=== PATIENT | male | born 1945 | race Caucasian/White ===

== ENCOUNTER 2016-12-17 18:00 | Inpatient (IN) | payer MEDICARE, OTHER ==
[~2016-12-17] VITALS: Ht 177.8 cm; Wt 74.1 kg
[2016-12-17] MEDS ORDERED: SODIUM CHLORIDE 0.9% 1,000ML IVBOLUS ONE (18:30)
[2016-12-17] MEDS ORDERED: SODIUM CHLORIDE FLUSH 10ML SYR IVF ONE (18:30)
[2016-12-17] MEDS ORDERED: LORazepam 2 MG/ML, 1ML IVPush ONE (19:00)
[2016-12-17] MEDS ORDERED: LORazepam 2 MG/ML, 1ML ONE (19:00)
[2016-12-17 19:07] LABS: BLOOD UREA NITROGEN 13 mg/dL (7-18)
[2016-12-17 19:10] LABS: ASPARTATE AMINO TRANSFERASE 22 U/L (15-37)
[2016-12-17] MEDS ORDERED: PROMETHAZINE 25 MG/ML, 1ML ONE (19:12)
[2016-12-17] MEDS ORDERED: PROMETHAZINE 25 MG/ML, 1ML IM ONE (19:30)
[2016-12-17] MEDS ORDERED: HALOPERIDOL 5 MG/ML ONE (21:15)
[2016-12-17] MEDS ORDERED: ONDANSETRON 2MG/ML, 2ML IVPush PRN (21:30)
[2016-12-17] MEDS ORDERED: PROMETHAZINE 25 MG/ML, 1ML IM PRN (21:30)
[2016-12-17] MEDS ORDERED: HALOPERIDOL 5 MG/ML IM ONE (21:30)
[2016-12-17 23:00] VITALS: BP 132/74
[2016-12-17] MEDS: NS + 20MEQ KCL 1,000 ML IV SCH (23:00)
[2016-12-17] MEDS: CEFTRIAXONE PMX 1GM/50ML 50 ML IV SCH (23:05)
[2016-12-17] MEDS: ENOXAPARIN 40 MG/0.4 ML SQ SCH (23:09)
[2016-12-17] MEDS: RISPERIDONE 1 MG TAB.RAPDIS PO SCH ×2 (23:09→23:14)
[2016-12-18 02:13] VITALS: BP 113/70
[2016-12-18] MEDS: ZIPRASIDONE 20 MG INJ IM PRN ×4 (05:52→22:55)
[2016-12-18 06:36] LABS: BLOOD UREA NITROGEN 9 mg/dL (7-18)
[2016-12-18 07:33] VITALS: BP 105/65
[2016-12-18] MEDS: CEFTRIAXONE PMX 1GM/50ML 50 ML IV SCH ×2 (09:05→21:45)
[2016-12-18 10:57] VITALS: BP 108/67
[2016-12-18 12:51] VITALS: BP 105/60
[2016-12-18] MEDS: NS + 20MEQ KCL 1,000 ML IV SCH (14:05)
[2016-12-18] MEDS: LORazepam 2 MG/ML, 1ML IVPush PRN (16:24)
[2016-12-18] MEDS: RISPERIDONE 0.5 MG TABLET PO SCH (21:00)
[2016-12-18] MEDS: MELATONIN 5 MG TABLET PO SCH (21:00)
[2016-12-18 21:02] VITALS: BP 101/63
[2016-12-18] MEDS: ENOXAPARIN 40 MG/0.4 ML SQ SCH (21:45)
[2016-12-19 01:22] VITALS: BP 117/75
[2016-12-19] MEDS: ZIPRASIDONE 20 MG INJ IM PRN ×2 (08:07→18:41)
[2016-12-19] MEDS: RISPERIDONE 0.5 MG TABLET PO SCH (10:12)
[2016-12-19] MEDS: CEFTRIAXONE PMX 1GM/50ML 50 ML IV SCH ×2 (10:12→22:32)
[2016-12-19 13:13] VITALS: BP 116/76
[2016-12-19 20:25] VITALS: BP 122/64
[2016-12-19] MEDS: RISPERIDONE 2 MG TABLET PO SCH (21:00)
[2016-12-19] MEDS: MELATONIN 5 MG TABLET PO SCH (21:00)
[2016-12-19] MEDS: ENOXAPARIN 40 MG/0.4 ML SQ SCH (22:32)
[2016-12-20 01:42] VITALS: BP 108/63
[2016-12-20 05:39] LABS: BLOOD UREA NITROGEN 11 mg/dL (7-18)
[2016-12-20 07:00] VITALS: BP 121/69
[2016-12-20] MEDS: RISPERIDONE 0.5 MG TABLET PO SCH (08:32)
[2016-12-20] MEDS: CEFTRIAXONE PMX 1GM/50ML 50 ML IV SCH ×2 (08:33→21:59)
[2016-12-20 13:21] VITALS: BP 119/66
[2016-12-20 19:26] VITALS: BP 131/80
[2016-12-20] MEDS: MELATONIN 5 MG TABLET PO SCH (21:00)
[2016-12-20] MEDS: RISPERIDONE 2 MG TABLET PO SCH (21:35)
[2016-12-20] MEDS: ENOXAPARIN 40 MG/0.4 ML SQ SCH (22:01)
[2016-12-20] MEDS ORDERED: ACETAMINOPHEN 325 MG TABLET PO PRN (23:30)
[2016-12-20] MEDS ORDERED: GUAIFENESIN/COD200MG-20MG/10ML LIQUID PO ONE (23:30)
[2016-12-21] MEDS: PIPERACILLIN/TAZO 3.375 GM in SODIUM CHLORIDE 0.9% 50 ML IV SCH ×4 (00:16→19:48)
[2016-12-21 00:29] VITALS: BP 113/72
[2016-12-21] MEDS ORDERED: FUROSEMIDE 40 MG/4 ML ONE (02:13)
[2016-12-21] MEDS ORDERED: FUROSEMIDE 40 MG/4 ML IV ONE (02:30)
[2016-12-21 02:36] LABS: ABG COLLECTION SITE LEFT RADIAL; COLLATERAL CIRCULATION TESTING NORMAL
[2016-12-21] MEDS: LINEZOLID PMX 600MG/300ML 300 ML IV SCH ×2 (03:26→14:33)
[2016-12-21] MEDS: LORazepam 2 MG/ML, 1ML IVPush PRN ×2 (04:36→22:30)
[2016-12-21] MEDS ORDERED: SODIUM CHLORIDE 0.9% 1,000 ML IVBOLUS ONE (04:59)
[2016-12-21] MEDS ORDERED: ACETAMINOPHEN 650 MG SUPP PR PRN ×2 (05:00)
[2016-12-21] MEDS ORDERED: LORazepam 2 MG/ML, 1ML IVPush ONE (05:00)
[2016-12-21] MEDS ORDERED: ASPIRIN 300 MG SUPP PR STA (05:32)
[2016-12-21 05:58] VITALS: BP 76/34
[2016-12-21] MEDS ORDERED: SODIUM CHLORIDE 0.9% 1,000ML IVBOLUS ONE (06:00)
[2016-12-21 07:03] LABS: BLOOD UREA NITROGEN 22 mg/dL (7-18)
[2016-12-21] MEDS: RISPERIDONE 0.5 MG TABLET PO SCH (08:00)
[2016-12-21 08:10] LABS: DIFF TOTAL CELLS COUNTED 100 CELL DIFF
[2016-12-21 08:14] LABS: VERIFY COUNTS? YES
[2016-12-21] MEDS ORDERED: SODIUM CHLORIDE 0.9% 1,000 ML IV SCH (11:00)
[2016-12-21] MEDS ORDERED: NOREPINEPHRINE 4 MG in SODIUM CHLORIDE 0.9% 246 ML IV PRN (14:00)
[2016-12-21] MEDS: SODIUM CHLORIDE 0.9% 1,000 ML IV SCH (20:07)
[2016-12-21] MEDS: MELATONIN 5 MG TABLET PO SCH (20:12)
[2016-12-21] MEDS: RISPERIDONE 2 MG TABLET PO SCH (20:12)
[2016-12-21] MEDS ORDERED: ENOXAPARIN 40 MG/0.4 ML SQ SCH (22:00)
[2016-12-22] MEDS: PIPERACILLIN/TAZO 3.375 GM in SODIUM CHLORIDE 0.9% 50 ML IV SCH ×4 (02:22→19:46)
[2016-12-22] MEDS: SODIUM CHLORIDE 0.9% 1,000 ML IV SCH (02:52)
[2016-12-22] MEDS: LINEZOLID PMX 600MG/300ML 300 ML IV SCH ×2 (02:52→12:45)
[2016-12-22] MEDS: LORazepam 2 MG/ML, 1ML IVPush PRN (04:30)
[2016-12-22 04:36] LABS: ASPARTATE AMINO TRANSFERASE 33 U/L (15-37); BLOOD UREA NITROGEN 20 mg/dL (7-18)
[2016-12-22 05:00] VITALS: BP 94/52
[2016-12-22] MEDS: RISPERIDONE 0.5 MG TABLET PO SCH (08:00)
[2016-12-22 14:25] VITALS: BP 114/69
[2016-12-22] MEDS ORDERED: ENOXAPARIN 40 MG/0.4 ML SQ SCH (21:00)
[2016-12-22] MEDS: MELATONIN 5 MG TABLET PO SCH (21:00)
[2016-12-22] MEDS: RISPERIDONE 2 MG TABLET PO SCH (21:59)
[2016-12-22 22:03] VITALS: BP 110/65
[2016-12-22] MEDS: ZIPRASIDONE 20 MG INJ IM PRN ×2 (22:03→22:08)
[2016-12-23] MEDS: LORazepam 2 MG/ML, 1ML IVPush PRN (01:23)
[2016-12-23] MEDS: PIPERACILLIN/TAZO 3.375 GM in SODIUM CHLORIDE 0.9% 50 ML IV SCH ×4 (02:04→18:40)
[2016-12-23] MEDS: LINEZOLID PMX 600MG/300ML 300 ML IV SCH ×2 (03:19→15:47)
[2016-12-23 05:38] LABS: BLOOD UREA NITROGEN 16 mg/dL (7-18)
[2016-12-23 05:45] VITALS: BP 114/67
[2016-12-23 06:23] VITALS: BP 118/70
[2016-12-23] MEDS: ZIPRASIDONE 20 MG INJ IM PRN ×2 (07:34→21:12)
[2016-12-23] MEDS: RISPERIDONE 0.5 MG TABLET PO SCH (08:00)
[2016-12-23 15:03] VITALS: BP 129/70
[2016-12-23 19:08] VITALS: BP 158/88
[2016-12-23] MEDS: MELATONIN 5 MG TABLET PO SCH (20:44)
[2016-12-23] MEDS: RISPERIDONE 2 MG TABLET PO SCH (20:45)
[2016-12-23] MEDS ORDERED: ENOXAPARIN 40 MG/0.4 ML SQ SCH (22:00)
[2016-12-24 01:13] VITALS: BP 128/78
[2016-12-24] MEDS: PIPERACILLIN/TAZO 3.375 GM in SODIUM CHLORIDE 0.9% 50 ML IV SCH ×3 (01:33→13:25)
[2016-12-24] MEDS: LINEZOLID PMX 600MG/300ML 300 ML IV SCH ×2 (03:14→14:49)
[2016-12-24 05:21] LABS: BLOOD UREA NITROGEN 9 mg/dL (7-18)
[2016-12-24 05:35] VITALS: BP 106/61
[2016-12-24] MEDS ORDERED: POTASSIUM CHLORIDE 20 MEQ TAB.ER.PRT PO ONE ×2 (06:30→12:00)
[2016-12-24 07:10] VITALS: BP 116/67
[2016-12-24] MEDS ORDERED: POTASSIUM CHLORIDE 20 MEQ PACKET PO ONE (08:30)
[2016-12-24] MEDS: RISPERIDONE 0.5 MG TABLET PO SCH (09:24)
[2016-12-24] MEDS ORDERED: AMOX1TAB64 PO (13:20)
[2016-12-24 13:49] VITALS: BP 124/62
[2016-12-24] MEDS ORDERED: PNEUMOCOCCAL 23 VACCINE IM-VACC ONE (15:30)
== END 2016-12-24 16:30 | DRG 871 ==
LOC: ED 20:57 → SUATTDRO 21:13 → EDIP 21:30 → 4NOR 22:07 → 4EST 12-18 10:49 → CCU 12-21 05:19 → ICU 12-21 18:37 → 4WST 12-22 14:10
PROVIDERS: ATTEND Family Medicine
DX: A41.9 Sepsis, unspecified organism (principal); J69.0 Pneumonitis due to inhalation of food and vomit; J96.00 Acute respiratory failure, unspecified whether with hypoxia or hypercapnia; G92 Toxic encephalopathy; N39.0 Urinary tract infection, site not specified; E44.0 Moderate protein-calorie malnutrition; F02.81 Dementia in other diseases classified elsewhere, unspecified severity, with behavioral disturbance; D64.9 Anemia, unspecified; E86.0 Dehydration; G47.00 Insomnia, unspecified; E87.6 Hypokalemia; G30.9 Alzheimer's disease, unspecified; R32 Unspecified urinary incontinence; J32.9 Chronic sinusitis, unspecified; Z66 Do not resuscitate; Z78.1 Physical restraint status; Z82.5 Family history of asthma and other chronic lower respiratory diseases; Z68.23 Body mass index [BMI] 23.0-23.9, adult
CPT/HCPCS: 36415; 36600; 70450; 71010; 76770; 80048; 80053; 81001; 82140; 82533; 82607; 82746; 82803; 82962; 83605; 83735; 84145; 84439; 84443; 85025; 87040; 87081; 87086; 87324; 90732; 93005; 96361; 96372; 96374; J0696; J1650; J1940; J2020; J2543; J2550; J3480; J3486; J1630; J2060; J7030

== ENCOUNTER 2017-03-25 04:07 | Emergency (ER) | payer MEDICARE ==
[~2017-03-25] VITALS: Ht 170.2 cm; Wt 75.5 kg
[~2017-03-25 04:07] MED LIST: AMOX1TAB64 PO
[2017-03-25 05:10] VITALS: BP 109/63
[2017-03-25] MEDS ORDERED: BACITRACIN ZINC OINT 500U/GM, 0.9 GM ONE (05:17)
== END 2017-03-25 05:35 | disposition home or self-care (01) ==
LOC: ED 05:00
DX: S01.01XA Laceration without foreign body of scalp, initial encounter (principal); G30.1 Alzheimer's disease with late onset; F02.81 Dementia in other diseases classified elsewhere, unspecified severity, with behavioral disturbance; S90.31XA Contusion of right foot, initial encounter; F17.200 Nicotine dependence, unspecified, uncomplicated; W01.0XXA Fall on same level from slipping, tripping and stumbling without subsequent striking against object, initial encounter; Y93.89 Activity, other specified; Y92.009 Unspecified place in unspecified non-institutional (private) residence as the place of occurrence of the external cause; Y99.9 Unspecified external cause status
CPT/HCPCS: 12002; 70450; 93005; 99284

== ENCOUNTER 2017-03-30 06:48 | Observation (INO) | payer MEDICARE ==
[~2017-03-30] VITALS: Ht 182.9 cm; Wt 75.2 kg
[2017-03-30 08:50] LABS: HEMATOCRIT 39.4 % (39.2-51.8); HEMOGLOBIN 12.9 g/dL (13.7-18.0)
[2017-03-30 09:01] LABS: BLOOD UREA NITROGEN 16 mg/dL (7-18)
[2017-03-30] MEDS ORDERED: CEFTRIAXONE PMX 1GM/50ML 50 ML IVPB ONE (09:30)
[2017-03-30] MEDS ORDERED: SODIUM CHLORIDE 0.9% 1,000ML IVBOLUS ONE (09:30)
[2017-03-30] MEDS ORDERED: ACETAMINOPHEN 325 MG TABLET PO PRN (10:00)
[2017-03-30] MEDS ORDERED: ONDANSETRON 2MG/ML, 2ML IVPush PRN (10:00)
[2017-03-30] MEDS ORDERED: ONDANSETRON ODT 4 MG PO PRN (10:00)
[2017-03-30] MEDS ORDERED: ENALAPRILAT 1.25 MG/ML, 2ML IVPush PRN (10:00)
[2017-03-30] MEDS ORDERED: HALOPERIDOL 1 MG TABLET PO PRN (10:00)
[2017-03-30] MEDS ORDERED: NYST15OI TP (10:21)
[2017-03-30] MEDS ORDERED: TAMS-11 PO (10:21)
[2017-03-30] MEDS ORDERED: DIVA125T3 PO (10:21)
[2017-03-30] MEDS ORDERED: CERA355L TP (10:21)
[2017-03-30] MEDS ORDERED: QUET25TA PO (10:21)
[2017-03-30] MEDS ORDERED: POTA10TA31 PO (10:21)
[2017-03-30] MEDS ORDERED: FURO-93 PO (10:21)
[2017-03-30] MEDS ORDERED: QUET50TA PO (10:21)
[2017-03-30] MEDS ORDERED: MULT-486 PO (10:25)
[2017-03-30] MEDS ORDERED: CYAN500T2 PO (10:25)
[2017-03-30] MEDS ORDERED: CHOL2000 PO (10:25)
[2017-03-30] MEDS ORDERED: LORA-445 PO (10:25)
[2017-03-30] MEDS ORDERED: THIA100T27 PO (10:25)
[2017-03-30 10:45] VITALS: BP 114/69
[2017-03-30] MEDS ORDERED: ENOXAPARIN 40 MG/0.4 ML SQ SCH (11:00)
[2017-03-30] MEDS: SODIUM CHLORIDE 0.9% 1,000 ML IV SCH (11:00)
[2017-03-30] MEDS ORDERED: HALOPERIDOL 5 MG/ML IM ONE (11:30)
[2017-03-30] MEDS: CHOLECALCIFEROL 1,000 UNIT TABLET PO SCH (13:00)
[2017-03-30] MEDS: FUROSEMIDE 20 MG TABLET PO SCH (13:00)
[2017-03-30] MEDS: THIAMINE 100MG TABLET PO SCH (13:00)
[2017-03-30] MEDS: CYANOCOBALAMIN 1,000 MCG TABLET PO SCH (13:00)
[2017-03-30] MEDS: POTASSIUM CHLORIDE 10 MEQ TABLET.ER PO SCH (13:00)
[2017-03-30] MEDS: MULTIVITAMINS/MINERALS TABLET PO SCH (13:00)
[2017-03-30] MEDS: DIVALPROEX 125 MG TABLET.DR PO SCH ×3 (13:39→21:00)
[2017-03-30] MEDS: QUETIAPINE 25MG TABLET PO SCH ×2 (13:39→21:00)
[2017-03-30] MEDS: ZIPRASIDONE 20 MG INJ IM PRN (19:33)
[2017-03-30 20:20] VITALS: BP 113/63
[2017-03-30] MEDS: NYSTATIN OINT 15GM TP SCH (21:00)
[2017-03-30] MEDS ORDERED: TAMSULOSIN 0.4 MG CAP.ER.24H PO SCH (21:00)
[2017-03-31] MEDS: SODIUM CHLORIDE 0.9% 1,000 ML IV SCH (00:20)
[2017-03-31] MEDS: ZIPRASIDONE 20 MG INJ IM PRN ×2 (00:30→05:31)
[2017-03-31 01:25] VITALS: BP 112/64
[2017-03-31 05:03] LABS: HEMATOCRIT 41.2 % (39.2-51.8); HEMOGLOBIN 13.6 g/dL (13.7-18.0)
[2017-03-31 05:07] LABS: BLOOD UREA NITROGEN 16 mg/dL (7-18)
[2017-03-31] MEDS: DIVALPROEX 125 MG TABLET.DR PO SCH (05:31)
[2017-03-31 07:54] VITALS: BP 123/76
[2017-03-31] MEDS: MULTIVITAMINS/MINERALS TABLET PO SCH (09:00)
[2017-03-31] MEDS: NYSTATIN OINT 15GM TP SCH (09:00)
[2017-03-31] MEDS: POTASSIUM CHLORIDE 10 MEQ TABLET.ER PO SCH (09:00)
[2017-03-31] MEDS: THIAMINE 100MG TABLET PO SCH (09:00)
[2017-03-31] MEDS: CHOLECALCIFEROL 1,000 UNIT TABLET PO SCH (09:00)
[2017-03-31] MEDS: FUROSEMIDE 20 MG TABLET PO SCH (09:00)
[2017-03-31] MEDS: CYANOCOBALAMIN 1,000 MCG TABLET PO SCH (09:00)
[2017-03-31] MEDS ORDERED: AMOX1TAB64 PO (11:00)
[2017-03-31] MEDS ORDERED: CEFD300C37 PO ×2 (11:00→11:06)
== END 2017-03-31 11:40 | disposition home or self-care (01) ==
LOC: ED 07:17 → EDIP 08:22 → INTOOBSV 08:22 → 4WST 10:25
PROVIDERS: ATTEND Internal Medicine
DX: S01.01XA Laceration without foreign body of scalp, initial encounter (principal); G93.40 Encephalopathy, unspecified; F02.81 Dementia in other diseases classified elsewhere, unspecified severity, with behavioral disturbance; G30.9 Alzheimer's disease, unspecified; E44.0 Moderate protein-calorie malnutrition; D64.9 Anemia, unspecified; Z82.5 Family history of asthma and other chronic lower respiratory diseases; Z87.01 Personal history of pneumonia (recurrent)
CPT/HCPCS: 12001; 36415; 70450; 71010; 80048; 80164; 81003; 82040; 83036; 83605; 83735; 84100; 84439; 84443; 85025; 87040; 93005; 93308; 93321; 93325; 93880; 96360; 96361; 96372; 99285; G0378; J1630; J3486; J7030

== ENCOUNTER 2017-04-11 17:47 | Inpatient (IN) | payer MEDICARE ==
[~2017-04-11] VITALS: Ht 185.4 cm; Wt 65.6 kg
[~2017-04-11 17:47] MED LIST changes: +CEFD300C37 PO; +CERA355L TP; +CHOL2000 PO; +CYAN500T2 PO; +DIVA125T3 PO; +FURO-93 PO; +LORA-445 PO; +MULT-486 PO; +NYST15OI TP; +POTA10TA31 PO; +QUET25TA PO; +QUET50TA PO; +TAMS-11 PO; +THIA100T27 PO
[2017-04-11] MEDS ORDERED: SODIUM CHLORIDE 0.9% 1,000ML IVBOLUS ONE (18:30)
[2017-04-11] MEDS ORDERED: SODIUM CHLORIDE FLUSH 10ML SYR IVF ONE (18:30)
[2017-04-11 18:56] LABS: HEMATOCRIT 40.1 % (39.2-51.8); HEMOGLOBIN 13.4 g/dL (13.7-18.0)
[2017-04-11 19:10] LABS: BLOOD UREA NITROGEN 16 mg/dL (7-18)
[2017-04-11] MEDS ORDERED: HALOPERIDOL 5 MG/ML ONE (19:15)
[2017-04-11 19:17] LABS: ASPARTATE AMINO TRANSFERASE 17 U/L (15-37)
[2017-04-11 19:19] LABS: IS PT STATUS REG ER OR PRE ER? YES
[2017-04-11] MEDS ORDERED: HALOPERIDOL 5 MG/ML IM ONE (19:30)
[2017-04-11] MEDS ORDERED: ACETAMINOPHEN 325 MG TABLET PO ONE (20:30)
[2017-04-11] MEDS ORDERED: METRONIDAZOLE PMX 500MG/100ML 100 ML IV ONE (20:30)
[2017-04-11] MEDS ORDERED: ACETAMINOPHEN 325 MG TABLET ONE (20:33)
[2017-04-11] MEDS ORDERED: NS + 20MEQ KCL 1,000 ML IV SCH (20:34)
[2017-04-11] MEDS ORDERED: METRONIDAZOLE PMX 500MG/100ML 100 ML ONE (20:34)
[2017-04-11] MEDS ORDERED: QUETIAPINE 25MG TABLET PO SCH (21:00)
[2017-04-11] MEDS ORDERED: LORazepam 0.5MG TABLET PO PRN (21:00)
[2017-04-11] MEDS ORDERED: POLYETHYLENE GLYCOL 17 GM PACKET PO PRN (21:00)
[2017-04-11] MEDS ORDERED: HYDROcodone/APAP 5/325 TABLET PO PRN (21:00)
[2017-04-11] MEDS: NYSTATIN OINT 15GM TP SCH (21:00)
[2017-04-11] MEDS ORDERED: morphine SULFATE 10 MG/ML, 1ML IVPush PRN (21:00)
[2017-04-11] MEDS ORDERED: ONDANSETRON 2MG/ML, 2ML IVPush PRN (21:00)
[2017-04-11] MEDS ORDERED: DOCUSATE 100 MG CAPSULE PO PRN (21:00)
[2017-04-11] MEDS ORDERED: QUETIAPINE 25MG TABLET PO PRN (21:00)
[2017-04-11 22:33] VITALS: BP 112/50
[2017-04-12] MEDS: DIVALPROEX 125 MG TABLET.DR PO SCH ×5 (00:38→20:15)
[2017-04-12] MEDS: TAMSULOSIN 0.4 MG CAP.ER.24H PO SCH ×2 (00:38→20:15)
[2017-04-12] MEDS: VANCOMYCIN 50 MG/ML ORAL SUSP PO SCH ×4 (00:38→17:24)
[2017-04-12] MEDS: ENOXAPARIN 40 MG/0.4 ML SQ SCH ×3 (00:39→20:20)
[2017-04-12 02:10] VITALS: BP 101/61
[2017-04-12 05:28] LABS: BLOOD UREA NITROGEN 13 mg/dL (7-18)
[2017-04-12 05:30] LABS: HEMATOCRIT 38.2 % (39.2-51.8); WHITE BLOOD COUNT 21.3 x10^3/uL (3.4-10)
[2017-04-12 05:51] LABS: DIFF TOTAL CELLS COUNTED 100 CELL DIFF
[2017-04-12 05:53] LABS: LARGE PLATELETS 1+; VERIFY COUNTS? YES
[2017-04-12 08:10] VITALS: BP 98/65
[2017-04-12] MEDS ORDERED: HALOPERIDOL 5 MG/ML IM PRN ×2 (08:30→15:00)
[2017-04-12] MEDS: NYSTATIN OINT 15GM TP SCH ×2 (09:00→21:00)
[2017-04-12] MEDS: THIAMINE 100MG TABLET PO SCH (09:50)
[2017-04-12] MEDS: POTASSIUM CHLORIDE 10 MEQ TABLET.ER PO SCH (09:50)
[2017-04-12] MEDS: MULTIVITAMIN 1 TABLET PO SCH (09:50)
[2017-04-12] MEDS: CYANOCOBALAMIN 1,000 MCG TABLET PO SCH (09:50)
[2017-04-12] MEDS: FUROSEMIDE 20 MG TABLET PO SCH (09:50)
[2017-04-12] MEDS: QUETIAPINE 25MG TABLET PO SCH ×2 (12:26→20:15)
[2017-04-12] MEDS ORDERED: POTASSIUM CHLORIDE 20 MEQ TAB.ER.PRT PO ONE (13:30)
[2017-04-12] MEDS ORDERED: LORazepam 2 MG/ML, 1ML ONE (14:07)
[2017-04-12] MEDS ORDERED: HALOPERIDOL 2 MG/ML ORAL SOL PO PRN (15:00)
[2017-04-12 19:37] VITALS: BP 159/69
[2017-04-13 01:17] VITALS: BP 114/81
[2017-04-13] MEDS: VANCOMYCIN 50 MG/ML ORAL SUSP PO SCH ×4 (01:20→17:51)
[2017-04-13] MEDS: HALOPERIDOL 2 MG/ML ORAL SOL PO PRN ×3 (04:10→21:51)
[2017-04-13 05:44] LABS: BLOOD UREA NITROGEN 17 mg/dL (7-18)
[2017-04-13 05:47] LABS: HEMATOCRIT 36.1 % (39.2-51.8); HEMOGLOBIN 12.2 g/dL (13.7-18.0); WHITE BLOOD COUNT 13.5 x10^3/uL (3.4-10)
[2017-04-13] MEDS: DIVALPROEX 125 MG TABLET.DR PO SCH ×5 (06:10→21:50)
[2017-04-13 07:28] VITALS: BP 92/53
[2017-04-13] MEDS: POTASSIUM CHLORIDE 10 MEQ TABLET.ER PO SCH (08:00)
[2017-04-13] MEDS: THIAMINE 100MG TABLET PO SCH (08:01)
[2017-04-13] MEDS: CYANOCOBALAMIN 1,000 MCG TABLET PO SCH (08:01)
[2017-04-13] MEDS: NYSTATIN OINT 15GM TP SCH ×2 (08:01→21:54)
[2017-04-13] MEDS: FUROSEMIDE 20 MG TABLET PO SCH (08:01)
[2017-04-13] MEDS: MULTIVITAMIN 1 TABLET PO SCH (08:01)
[2017-04-13] MEDS: POTASSIUM CHLORIDE 20 MEQ TAB.ER.PRT PO ONE ×2 (08:18→09:06)
[2017-04-13] MEDS: QUETIAPINE 25MG TABLET PO SCH ×3 (12:12→21:50)
[2017-04-13] MEDS: HALOPERIDOL 5 MG/ML IM PRN (15:47)
[2017-04-13 19:18] VITALS: BP 101/64
[2017-04-13] MEDS: TAMSULOSIN 0.4 MG CAP.ER.24H PO SCH (21:50)
[2017-04-13] MEDS: ENOXAPARIN 40 MG/0.4 ML SQ SCH (21:54)
[2017-04-14] MEDS: VANCOMYCIN 50 MG/ML ORAL SUSP PO SCH ×4 (00:26→17:33)
[2017-04-14 02:13] VITALS: BP 97/59
[2017-04-14 05:08] LABS: BLOOD UREA NITROGEN 14 mg/dL (7-18)
[2017-04-14 05:10] LABS: HEMATOCRIT 36.2 % (39.2-51.8); HEMOGLOBIN 12.1 g/dL (13.7-18.0); WHITE BLOOD COUNT 8.4 x10^3/uL (3.4-10)
[2017-04-14] MEDS: DIVALPROEX 125 MG TABLET.DR PO SCH ×4 (06:09→22:01)
[2017-04-14 09:37] VITALS: BP 101/56
[2017-04-14] MEDS: MULTIVITAMIN 1 TABLET PO SCH (09:41)
[2017-04-14] MEDS: POTASSIUM CHLORIDE 10 MEQ TABLET.ER PO SCH (09:41)
[2017-04-14] MEDS: FUROSEMIDE 20 MG TABLET PO SCH (09:41)
[2017-04-14] MEDS: CYANOCOBALAMIN 1,000 MCG TABLET PO SCH (09:41)
[2017-04-14] MEDS: THIAMINE 100MG TABLET PO SCH (09:41)
[2017-04-14] MEDS: NYSTATIN OINT 15GM TP SCH ×2 (09:42→22:01)
[2017-04-14] MEDS: QUETIAPINE 25MG TABLET PO SCH ×2 (11:46→22:00)
[2017-04-14 13:53] VITALS: BP 113/63
[2017-04-14] MEDS: ACETAMINOPHEN 325 MG TABLET PO PRN (17:33)
[2017-04-14 18:36] VITALS: BP 108/61
[2017-04-14] MEDS: POTASSIUM CHLORIDE 20 MEQ TAB.ER.PRT PO SCH (22:00)
[2017-04-14] MEDS: TAMSULOSIN 0.4 MG CAP.ER.24H PO SCH (22:01)
[2017-04-14] MEDS: ENOXAPARIN 40 MG/0.4 ML SQ SCH (22:01)
[2017-04-15] MEDS: VANCOMYCIN 50 MG/ML ORAL SUSP PO SCH ×4 (00:58→17:17)
[2017-04-15 01:30] VITALS: BP 119/66
[2017-04-15 05:33] LABS: BLOOD UREA NITROGEN 12 mg/dL (7-18)
[2017-04-15] MEDS: DIVALPROEX 125 MG TABLET.DR PO SCH ×4 (05:58→21:10)
[2017-04-15 06:03] LABS: HEMATOCRIT 38.2 % (39.2-51.8); HEMOGLOBIN 13.1 g/dL (13.7-18.0); WHITE BLOOD COUNT 17.9 x10^3/uL (3.4-10)
[2017-04-15 07:39] VITALS: BP 107/52
[2017-04-15] MEDS: MULTIVITAMIN 1 TABLET PO SCH (09:12)
[2017-04-15] MEDS: THIAMINE 100MG TABLET PO SCH (09:12)
[2017-04-15] MEDS: POTASSIUM CHLORIDE 20 MEQ TAB.ER.PRT PO SCH ×2 (09:12→21:10)
[2017-04-15] MEDS: FUROSEMIDE 20 MG TABLET PO SCH (09:12)
[2017-04-15] MEDS: CYANOCOBALAMIN 1,000 MCG TABLET PO SCH (09:12)
[2017-04-15] MEDS: NYSTATIN OINT 15GM TP SCH ×2 (09:16→21:11)
[2017-04-15] MEDS: QUETIAPINE 25MG TABLET PO SCH ×2 (11:16→21:10)
[2017-04-15 14:00] VITALS: BP 112/58
[2017-04-15] MEDS: ACETAMINOPHEN 325 MG TABLET PO PRN (14:54)
[2017-04-15] MEDS ORDERED: SODIUM CHLORIDE 0.9%, 500ML IVBOLUS ONE (19:30)
[2017-04-15 20:00] VITALS: BP 122/69
[2017-04-15] MEDS: ENOXAPARIN 40 MG/0.4 ML SQ SCH (21:10)
[2017-04-15] MEDS: TAMSULOSIN 0.4 MG CAP.ER.24H PO SCH (21:11)
[2017-04-15] MEDS: METRONIDAZOLE PMX 500MG/100ML 100 ML IV SCH (22:11)
[2017-04-16 00:48] VITALS: BP 127/72
[2017-04-16] MEDS: DIVALPROEX 125 MG TABLET.DR PO SCH ×4 (05:49→20:13)
[2017-04-16] MEDS: VANCOMYCIN 50 MG/ML ORAL SUSP PO SCH ×5 (05:49→23:47)
[2017-04-16] MEDS: METRONIDAZOLE PMX 500MG/100ML 100 ML IV SCH ×3 (05:49→21:49)
[2017-04-16 06:04] LABS: BLOOD UREA NITROGEN 14 mg/dL (7-18)
[2017-04-16 06:12] LABS: HEMATOCRIT 37.4 % (39.2-51.8); HEMOGLOBIN 12.5 g/dL (13.7-18.0); WHITE BLOOD COUNT 17.6 x10^3/uL (3.4-10)
[2017-04-16 08:06] VITALS: BP 101/61
[2017-04-16] MEDS: NYSTATIN OINT 15GM TP SCH ×2 (09:00→20:25)
[2017-04-16] MEDS ORDERED: MAGNESIUM SULFATE PMX 2GM/50ML 50 ML IV ONE (10:00)
[2017-04-16] MEDS: THIAMINE 100MG TABLET PO SCH (10:03)
[2017-04-16] MEDS: POTASSIUM CHLORIDE 20 MEQ TAB.ER.PRT PO SCH ×2 (10:03→20:14)
[2017-04-16] MEDS: CYANOCOBALAMIN 1,000 MCG TABLET PO SCH (10:03)
[2017-04-16] MEDS: MULTIVITAMIN 1 TABLET PO SCH (10:03)
[2017-04-16] MEDS: QUETIAPINE 25MG TABLET PO SCH ×2 (11:57→20:14)
[2017-04-16 14:50] VITALS: BP 91/59
[2017-04-16] MEDS: CEFTRIAXONE PMX 1GM/50ML 50 ML IV SCH (17:28)
[2017-04-16 19:14] VITALS: BP 116/60
[2017-04-16] MEDS: TAMSULOSIN 0.4 MG CAP.ER.24H PO SCH (20:13)
[2017-04-16] MEDS: ENOXAPARIN 40 MG/0.4 ML SQ SCH (20:14)
[2017-04-17 00:59] VITALS: BP 113/74
[2017-04-17 05:23] LABS: HEMATOCRIT 38.5 % (39.2-51.8); HEMOGLOBIN 12.8 g/dL (13.7-18.0); WHITE BLOOD COUNT 10.2 x10^3/uL (3.4-10)
[2017-04-17 05:30] LABS: BLOOD UREA NITROGEN 9 mg/dL (7-18)
[2017-04-17] MEDS: DIVALPROEX 125 MG TABLET.DR PO SCH ×4 (05:50→20:47)
[2017-04-17] MEDS: VANCOMYCIN 50 MG/ML ORAL SUSP PO SCH ×3 (05:50→17:53)
[2017-04-17] MEDS: METRONIDAZOLE PMX 500MG/100ML 100 ML IV SCH ×3 (05:59→21:54)
[2017-04-17 07:33] VITALS: BP 116/78
[2017-04-17] MEDS: THIAMINE 100MG TABLET PO SCH (08:16)
[2017-04-17] MEDS: CYANOCOBALAMIN 1,000 MCG TABLET PO SCH (08:16)
[2017-04-17] MEDS: MULTIVITAMIN 1 TABLET PO SCH (08:16)
[2017-04-17] MEDS: NYSTATIN OINT 15GM TP SCH ×2 (08:17→20:48)
[2017-04-17] MEDS: POTASSIUM CHLORIDE 20 MEQ TAB.ER.PRT PO SCH (08:17)
[2017-04-17] MEDS: QUETIAPINE 25MG TABLET PO SCH ×2 (11:52→20:47)
[2017-04-17 13:47] VITALS: BP 120/75
[2017-04-17] MEDS: CEFTRIAXONE PMX 1GM/50ML 50 ML IV SCH (17:53)
[2017-04-17] MEDS: HALOPERIDOL 5 MG/ML IM PRN (19:33)
[2017-04-17] MEDS: TAMSULOSIN 0.4 MG CAP.ER.24H PO SCH (20:47)
[2017-04-17] MEDS: ENOXAPARIN 40 MG/0.4 ML SQ SCH (20:47)
[2017-04-17 20:56] VITALS: BP 108/63
[2017-04-18 04:08] VITALS: BP 110/57
[2017-04-18] MEDS: DIVALPROEX 125 MG TABLET.DR PO SCH ×5 (05:25→21:00)
[2017-04-18] MEDS: METRONIDAZOLE PMX 500MG/100ML 100 ML IV SCH ×3 (05:25→22:57)
[2017-04-18] MEDS: VANCOMYCIN 50 MG/ML ORAL SUSP PO SCH ×4 (05:25→17:59)
[2017-04-18 08:42] VITALS: BP 116/64
[2017-04-18] MEDS: THIAMINE 100MG TABLET PO SCH (09:42)
[2017-04-18] MEDS: MULTIVITAMIN 1 TABLET PO SCH (09:42)
[2017-04-18] MEDS: CYANOCOBALAMIN 1,000 MCG TABLET PO SCH (09:42)
[2017-04-18] MEDS: NYSTATIN OINT 15GM TP SCH (09:43)
[2017-04-18] MEDS: QUETIAPINE 25MG TABLET PO SCH ×3 (11:50→21:00)
[2017-04-18] MEDS: MEROPENEM 500 MG in SODIUM CHLORIDE 0.9% 100 ML IV SCH ×2 (11:50→19:56)
[2017-04-18 14:18] VITALS: BP 125/56
[2017-04-18 19:39] VITALS: BP 123/69
[2017-04-18] MEDS: TAMSULOSIN 0.4 MG CAP.ER.24H PO SCH ×2 (19:56→21:00)
[2017-04-18] MEDS: ENOXAPARIN 40 MG/0.4 ML SQ SCH ×2 (19:57→21:00)
[2017-04-19 02:25] VITALS: BP 105/60
[2017-04-19] MEDS: MEROPENEM 500 MG in SODIUM CHLORIDE 0.9% 100 ML IV SCH ×3 (03:49→19:23)
[2017-04-19] MEDS: NYSTATIN OINT 15GM TP SCH ×2 (03:49→11:00)
[2017-04-19 05:04] LABS: HEMATOCRIT 38.6 % (39.2-51.8); HEMOGLOBIN 12.8 g/dL (13.7-18.0)
[2017-04-19 05:17] LABS: BLOOD UREA NITROGEN 11 mg/dL (7-18)
[2017-04-19] MEDS: DIVALPROEX 125 MG TABLET.DR PO SCH ×4 (06:00→19:23)
[2017-04-19] MEDS: VANCOMYCIN 50 MG/ML ORAL SUSP PO SCH ×4 (06:00→19:23)
[2017-04-19] MEDS: METRONIDAZOLE PMX 500MG/100ML 100 ML IV SCH ×2 (06:19→14:53)
[2017-04-19 08:02] VITALS: BP 100/62
[2017-04-19] MEDS: THIAMINE 100MG TABLET PO SCH (11:00)
[2017-04-19] MEDS: MULTIVITAMIN 1 TABLET PO SCH (11:00)
[2017-04-19] MEDS: CYANOCOBALAMIN 1,000 MCG TABLET PO SCH (11:00)
[2017-04-19] MEDS ORDERED: ERTA1VIA IV (11:20)
[2017-04-19] MEDS ORDERED: VANC1VIA3 PO (11:20)
[2017-04-19] MEDS ORDERED: DOCU-131 PO (11:20)
[2017-04-19] MEDS ORDERED: HYDR-3240 PO (11:20)
[2017-04-19] MEDS: QUETIAPINE 25MG TABLET PO SCH ×2 (11:30→19:23)
[2017-04-19] MEDS ORDERED: OMNIPAQUE 350 MG/ML, 100ML BOTTLE ONE (12:46)
[2017-04-19 13:30] VITALS: BP 108/50
[2017-04-19] MEDS: TAMSULOSIN 0.4 MG CAP.ER.24H PO SCH (19:23)
[2017-04-19] MEDS: ENOXAPARIN 40 MG/0.4 ML SQ SCH (19:35)
[2017-04-19 19:42] VITALS: BP 111/68
[2017-04-20] MEDS: METRONIDAZOLE PMX 500MG/100ML 100 ML IV SCH ×4 (00:58→22:26)
[2017-04-20] MEDS: VANCOMYCIN 50 MG/ML ORAL SUSP PO SCH ×4 (01:28→19:30)
[2017-04-20] MEDS: NYSTATIN OINT 15GM TP SCH ×3 (04:00→22:25)
[2017-04-20] MEDS: MEROPENEM 500 MG in SODIUM CHLORIDE 0.9% 100 ML IV SCH ×2 (04:01→12:20)
[2017-04-20 05:02] VITALS: BP 122/74
[2017-04-20 08:10] VITALS: BP 95/63
[2017-04-20] MEDS: MULTIVITAMIN 1 TABLET PO SCH (09:00)
[2017-04-20] MEDS: DIVALPROEX 125 MG TABLET.DR PO SCH ×4 (09:59→21:00)
[2017-04-20] MEDS: THIAMINE 100MG TABLET PO SCH (09:59)
[2017-04-20] MEDS: CYANOCOBALAMIN 1,000 MCG TABLET PO SCH (09:59)
[2017-04-20] MEDS: QUETIAPINE 25MG TABLET PO SCH ×2 (13:00→21:00)
[2017-04-20 15:44] VITALS: BP 118/74
[2017-04-20] MEDS: ERTAPENEM 1 GM in SODIUM CHLORIDE 0.9% 50 ML IV SCH (18:15)
[2017-04-20] MEDS: TAMSULOSIN 0.4 MG CAP.ER.24H PO SCH (21:00)
[2017-04-20] MEDS: HALOPERIDOL 5 MG/ML IM PRN (22:13)
[2017-04-20 22:28] VITALS: BP 107/55
[2017-04-20] MEDS: ENOXAPARIN 40 MG/0.4 ML SQ SCH (22:28)
[2017-04-21] MEDS ORDERED: ONDANSETRON 2MG/ML, 2ML IVPush PRN (01:00)
[2017-04-21] MEDS ORDERED: POLYETHYLENE GLYCOL 17 GM PACKET PO PRN (01:00)
[2017-04-21] MEDS ORDERED: DOCUSATE 100 MG CAPSULE PO PRN (01:00)
[2017-04-21] MEDS ORDERED: HYDROcodone/APAP 5/325 TABLET PO PRN (01:00)
[2017-04-21] MEDS ORDERED: morphine SULFATE 10 MG/ML, 1ML IVPush PRN (01:00)
[2017-04-21 01:27] VITALS: BP 94/60
[2017-04-21] MEDS: VANCOMYCIN 50 MG/ML ORAL SUSP PO SCH ×4 (01:30→20:24)
[2017-04-21] MEDS: METRONIDAZOLE PMX 500MG/100ML 100 ML IV SCH (05:30)
[2017-04-21] MEDS: DIVALPROEX 125 MG TABLET.DR PO SCH ×4 (06:00→20:24)
[2017-04-21] MEDS: THIAMINE 100MG TABLET PO SCH (09:00)
[2017-04-21] MEDS: CYANOCOBALAMIN 1,000 MCG TABLET PO SCH (09:00)
[2017-04-21] MEDS: MULTIVITAMIN 1 TABLET PO SCH (09:00)
[2017-04-21] MEDS: MEGESTROL ORAL.SUSP 40 MG/ML PO SCH (10:00)
[2017-04-21] MEDS: NYSTATIN OINT 15GM TP SCH ×2 (10:43→21:00)
[2017-04-21] MEDS: QUETIAPINE 25MG TABLET PO SCH ×5 (10:43→21:00)
[2017-04-21] MEDS: ERTAPENEM 1 GM in SODIUM CHLORIDE 0.9% 50 ML IV SCH (17:54)
[2017-04-21] MEDS: HALOPERIDOL 5 MG/ML IM PRN (19:38)
[2017-04-21] MEDS: ENOXAPARIN 40 MG/0.4 ML SQ SCH (20:25)
[2017-04-21] MEDS: TAMSULOSIN 0.4 MG CAP.ER.24H PO SCH (20:26)
[2017-04-21 20:34] VITALS: BP 115/62
[2017-04-21 21:15] VITALS: BP 107/64
[2017-04-22] MEDS: VANCOMYCIN 50 MG/ML ORAL SUSP PO SCH ×2 (01:45→08:17)
[2017-04-22 05:42] VITALS: BP 111/62
[2017-04-22] MEDS: DIVALPROEX 125 MG TABLET.DR PO SCH ×2 (05:52→12:25)
[2017-04-22 06:31] VITALS: BP 100/65
[2017-04-22] MEDS: THIAMINE 100MG TABLET PO SCH (08:19)
[2017-04-22] MEDS: QUETIAPINE 25MG TABLET PO SCH ×2 (08:19→12:31)
[2017-04-22] MEDS: CYANOCOBALAMIN 1,000 MCG TABLET PO SCH (08:19)
[2017-04-22] MEDS: MEGESTROL ORAL.SUSP 40 MG/ML PO SCH (08:20)
[2017-04-22] MEDS: NYSTATIN OINT 15GM TP SCH (08:20)
[2017-04-22] MEDS: MULTIVITAMIN 1 TABLET PO SCH (09:00)
[2017-04-22] MEDS ORDERED: ERTA1VIA IV (11:13)
== END 2017-04-22 13:04 | DRG 872 ==
LOC: ED 20:06 → SUATTDRO 20:25 → EDIP 20:34 → 4NOR 22:19
PROVIDERS: ADMIT Family Medicine; ATTEND Family Medicine
DX: A41.9 Sepsis, unspecified organism (principal); E44.0 Moderate protein-calorie malnutrition; A04.7 Enterocolitis due to Clostridium difficile; Z68.1 Body mass index [BMI] 19.9 or less, adult; E87.6 Hypokalemia; F02.80 Dementia in other diseases classified elsewhere, unspecified severity, without behavioral disturbance, psychotic disturbance, mood disturbance, and anxiety; G30.9 Alzheimer's disease, unspecified; N40.0 Benign prostatic hyperplasia without lower urinary tract symptoms; Z16.19 Resistance to other specified beta lactam antibiotics
CPT/HCPCS: 36415; 71010; 74177; 80048; 80053; 81003; 83605; 83690; 83735; 84145; 84484; 85025; 85610; 85730; 87040; 87077; 87186; 87324; 96372; 96374; J0696; J1335; J1650; J2185; J3370; J3480; Q9967; J1630; J2270; J3475; J7030; J7040

== ENCOUNTER 2017-09-09 22:55 | Emergency (ER) | payer MEDICARE ==
[~2017-09-09] VITALS: Ht 172.7 cm; Wt 64.0 kg
[~2017-09-09 22:55] MED LIST changes: +DOCU-131 PO; +ERTA1VIA IV; +HYDR-3240 PO; +VANC1VIA3 PO
[2017-09-10 01:25] VITALS: BP 96/54
== END 2017-09-10 02:25 | disposition home or self-care (01) ==
LOC: ED 23:52
DX: R26.9 Unspecified abnormalities of gait and mobility (principal); F02.80 Dementia in other diseases classified elsewhere, unspecified severity, without behavioral disturbance, psychotic disturbance, mood disturbance, and anxiety; G30.9 Alzheimer's disease, unspecified; W19.XXXA Unspecified fall, initial encounter; Y93.89 Activity, other specified; Y92.89 Other specified places as the place of occurrence of the external cause; Y99.8 Other external cause status; Z88.8 Allergy status to other drugs, medicaments and biological substances
CPT/HCPCS: 99283

== ENCOUNTER 2017-10-09 21:23 | Emergency (ER) | payer MEDICARE ==
[~2017-10-09] VITALS: Ht 172.7 cm; Wt 80.0 kg
[2017-10-09 21:28] VITALS: BP 100/68
== END 2017-10-09 22:45 | disposition home or self-care (01) ==
LOC: ED 21:33
DX: S50.11XA Contusion of right forearm, initial encounter (principal); X58.XXXA Exposure to other specified factors, initial encounter; Y93.89 Activity, other specified; Y92.89 Other specified places as the place of occurrence of the external cause; Y99.8 Other external cause status
CPT/HCPCS: 99284

== ENCOUNTER 2018-01-25 19:00 | Emergency (ER) | payer MEDICARE ==
[~2018-01-25] VITALS: Ht 175.3 cm; Wt 76.0 kg
[2018-01-25] MEDS ORDERED: MORPHINE SULFATE 4 MG/ML, 1ML ONE ×2 (19:14→20:02)
[2018-01-25] MEDS ORDERED: MORPHINE SULFATE 4 MG/ML, 1ML IVPush ONE ×2 (19:30→20:00)
[2018-01-25] MEDS ORDERED: PLEASE ENTER HEIGHT AND WEIGHT MC SCH (19:30)
[2018-01-25] MEDS ORDERED: SODIUM CHLORIDE FLUSH 10ML SYR IVF ONE (19:30)
[2018-01-25 19:39] LABS: BASOPHILS # (AUTO) 0.05 x10^3/uL (0-0.1); BASOPHILS % (AUTO) 1 % (0-1); EOSINOPHILS # (AUTO) 0.11 x10^3/uL (0-0.4); EOSINOPHILS % (AUTO) 1 % (1-7); LYMPHOCYTES # (AUTO) 2.28 x10^3/uL (1-3.4); LYMPHOCYTES % (AUTO) 30 % (22-44); MD NO; MEAN CORPUSCULAR HEMOGLOBIN 30.9 pg (27.5-34.5); MEAN CORPUSCULAR HGB CONC 33.7 g/dL (33.2-36.2); MEAN CORPUSCULAR VOLUME 91.5 fL (81-97); MEAN PLATELET VOLUME 8.6 fL (7.4-10.4); MONOCYTES # (AUTO) 0.79 x10^3/uL (0.2-0.8); MONOCYTES % (AUTO) 11 % (2-9); NEUTROPHILS # (AUTO) 4.29 x10^3/uL (1.8-6.8); NEUTROPHILS % (AUTO) 57 % (42-75); PLATELET COUNT 152 x10^3/uL (130-400); RED BLOOD COUNT 4.48 x10^6/uL (4.38-5.82); RED CELL DISTRIBUTION WIDTH 14.7 % (9.4-14.8)
[2018-01-25 19:51] LABS: ALANINE AMINOTRANSFERASE 23 U/L (12-78); ALBUMIN 3.1 g/dL (3.4-5.0); ANION GAP 5 mmol/L (5-15); CALCIUM 8.3 mg/dL (8.5-10.1); CHLORIDE 108 mmol/L (98-107)
[2018-01-25 19:53] LABS: ALKALINE PHOSPHATASE 48 U/L (45-117); BILIRUBIN,TOTAL 0.2 mg/dL (0.2-1.0); TOTAL PROTEIN 6.8 g/dL (6.4-8.2)
[2018-01-25] MEDS ORDERED: ZIPRASIDONE 20 MG INJ IM ONE ×3 (20:23→21:30)
[2018-01-25 21:33] LABS: MICROSCOPIC AUTO
[2018-01-25 21:35] LABS: CULTURE INDICATED? YES
[2018-01-25] MEDS ORDERED: FOSFOMYCIN 3 GM PACKET PO ONE (22:00)
[2018-01-26 00:03] VITALS: BP 124/74
== END 2018-01-26 00:06 | disposition home or self-care (01) ==
LOC: ED 20:58
DX: K40.90 Unilateral inguinal hernia, without obstruction or gangrene, not specified as recurrent (principal); Z88.6 Allergy status to analgesic agent; G30.9 Alzheimer's disease, unspecified; F02.80 Dementia in other diseases classified elsewhere, unspecified severity, without behavioral disturbance, psychotic disturbance, mood disturbance, and anxiety
CPT/HCPCS: 36415; 80053; 81001; 83690; 85025; 87086; 96372; 96374; 96376; 99284; J3486

== ENCOUNTER 2018-01-29 13:59 | Emergency (ER) | payer MEDICARE ==
[~2018-01-29] VITALS: Ht 167.6 cm; Wt 77.0 kg
[~2018-01-29 13:59] MED LIST changes: -DIVA125T3 PO; +DIVA125T31 PO
[2018-01-29 14:24] LABS: BASOPHILS # (AUTO) 0.05 x10^3/uL (0-0.1); BASOPHILS % (AUTO) 1 % (0-1); EOSINOPHILS # (AUTO) 0.11 x10^3/uL (0-0.4); EOSINOPHILS % (AUTO) 2 % (1-7); LYMPHOCYTES % (AUTO) 32 % (22-44); MD NO; MEAN CORPUSCULAR HEMOGLOBIN 31.4 pg (27.5-34.5); MEAN CORPUSCULAR HGB CONC 33.6 g/dL (33.2-36.2); MEAN CORPUSCULAR VOLUME 93.6 fL (81-97); MEAN PLATELET VOLUME 8.8 fL (7.4-10.4); MONOCYTES # (AUTO) 0.52 x10^3/uL (0.2-0.8); MONOCYTES % (AUTO) 8 % (2-9); NEUTROPHILS # (AUTO) 3.62 x10^3/uL (1.8-6.8); NEUTROPHILS % (AUTO) 58 % (42-75); PLATELET COUNT 147 x10^3/uL (130-400); RED CELL DISTRIBUTION WIDTH 14.8 % (9.4-14.8)
[2018-01-29 14:27] VITALS: BP 111/69
[2018-01-29 14:35] LABS: ALBUMIN 3.2 g/dL (3.4-5.0); ANION GAP 6 mmol/L (5-15); CALCIUM 8.6 mg/dL (8.5-10.1); CHLORIDE 106 mmol/L (98-107); CREATININE 1.13 mg/dL (0.7-1.3)
[2018-01-29] MEDS ORDERED: CERA453C TP (14:39)
[2018-01-29] MEDS ORDERED: LACT1CAP44 PO (14:40)
[2018-01-29] MEDS ORDERED: LACT-23 PO (14:42)
[2018-01-29] MEDS ORDERED: FURO20TA3 PO (14:43)
[2018-01-29] MEDS ORDERED: PSYL174P2 PO (14:44)
[2018-01-29] MEDS ORDERED: METH1TAB21 PO (14:45)
[2018-01-29] MEDS ORDERED: QUET25TA PO (14:47)
[2018-01-29] MEDS ORDERED: MULT1TAB85 PO (14:48)
[2018-01-29] MEDS ORDERED: TRAZ-136 PO (14:49)
[2018-01-29] MEDS ORDERED: LORA0.5T PO (14:52)
[2018-01-29] MEDS ORDERED: ACET325T21 PO (14:53)
[2018-01-29 15:34] LABS: MICROSCOPIC INDICATED
[2018-01-29 15:35] LABS: CULTURE INDICATED? YES
[2018-01-29] MEDS ORDERED: CEFTRIAXONE 1,000 MG IM ONE (16:30)
[2018-01-29] MEDS ORDERED: LIDOCAINE-MPF 2% ,5ML ONE (16:44)
[2018-01-29] MEDS ORDERED: CEFTRIAXONE 1,000 MG ONE (16:44)
== END 2018-01-29 18:55 | disposition home or self-care (01) ==
LOC: ED 14:45
DX: N30.00 Acute cystitis without hematuria (principal); K40.90 Unilateral inguinal hernia, without obstruction or gangrene, not specified as recurrent; G30.9 Alzheimer's disease, unspecified; F02.80 Dementia in other diseases classified elsewhere, unspecified severity, without behavioral disturbance, psychotic disturbance, mood disturbance, and anxiety; Z79.899 Other long term (current) drug therapy
CPT/HCPCS: 36415; 80048; 81001; 82040; 85025; 87086; 96372; 99284; J0696

== ENCOUNTER 2018-04-27 00:51 | Emergency (ER) | payer MEDICARE ==
[~2018-04-27] VITALS: Ht 180.3 cm; Wt 78.7 kg
[~2018-04-27 00:51] MED LIST changes: +ACET325T21 PO; +CERA453C TP; +FURO20TA3 PO; +LACT-23 PO; +LACT1CAP44 PO; +LORA0.5T PO; +METH1TAB21 PO; +MULT1TAB85 PO; +PSYL174P2 PO; +TRAZ-136 PO
[2018-04-27 02:14] VITALS: BP 124/76
== END 2018-04-27 02:23 | disposition home or self-care (01) ==
LOC: ED 01:54
DX: S06.0X0A Concussion without loss of consciousness, initial encounter (principal); G30.1 Alzheimer's disease with late onset; F02.80 Dementia in other diseases classified elsewhere, unspecified severity, without behavioral disturbance, psychotic disturbance, mood disturbance, and anxiety; W01.0XXA Fall on same level from slipping, tripping and stumbling without subsequent striking against object, initial encounter; Y93.89 Activity, other specified; Y92.009 Unspecified place in unspecified non-institutional (private) residence as the place of occurrence of the external cause; Y99.8 Other external cause status
CPT/HCPCS: 70450; 93005; 99284